=== PATIENT | male | born 1980 | race Caucasian/White ===

== ENCOUNTER 2021-07-31 15:42 | Emergency (ER) | payer MEDICARE, OTHER ==
[2021-07-31 17:36] LABS: RED BLOOD COUNT 4.6 M/UL (4.20-5.50); WHITE BLOOD COUNT 3.4 K/UL (4.5-11.0)
[2021-07-31 17:59] LABS: BUN/CREATININE RATIO 10 (0-10)
== END 2021-07-31 19:10 | disposition home or self-care (01) ==
LOC: ER1 15:42
PROVIDERS: Family Medicine
DX: J98.01 Acute bronchospasm (principal); R20.0 Anesthesia of skin; F10.10 Alcohol abuse, uncomplicated; E87.1 Hypo-osmolality and hyponatremia; E87.6 Hypokalemia; Z86.59 Personal history of other mental and behavioral disorders; R79.89 Other specified abnormal findings of blood chemistry; E11.9 Type 2 diabetes mellitus without complications; Z79.4 Long term (current) use of insulin; Y90.5 Blood alcohol level of 100-119 mg/100 ml
CPT/HCPCS: 70450; 71045; 80053; 82009; 82550; 82553; 83874; 84484; 85025; 99284; G0480